=== PATIENT | male | born 1960 | race Caucasian/White ===

== ENCOUNTER 2020-05-26 07:38 | Day surgery (SDC) | payer MEDICAID ==
[~2020-05-26] VITALS: Ht 174 cm; Wt 90.4 kg
[2020-05-26] VITALS (11 sets, daily range): BP systolic 125–140; BP diastolic 87–119; PULSE 70–88; TEMP 98.7
[2020-05-26 08:40] LABS: HEMATOCRIT 44.8 % (42.0-52.0); HEMOGLOBIN 15.5 g/dl (13.5-18.0); MEAN CELL VOLUME 84 fl (80.0-100.0); MEAN CORPUSCULAR HEMOGLOBIN 29 pg (27.0-31.0); MEAN CORPUSCULAR HGB CONC 35 g/dl (33.0-37.0); MEAN PLATELET VOLUME 9.3 fl (7.4-10.4); PLATELET COUNT 247 K/mm3 (130-400); RED BLOOD COUNT 5.34 M/mm3 (4.20-5.60); REDCELL DISTRIBUTION WIDTH-CV 12.1 % (11.5-14.5)
[2020-05-26 08:41] LABS: CALCIUM 9.6 mg/dL (8.4-10.2); CREATININE, serum 1.1 (0.66-1.25); POTASSIUM 3.7 mmol/L (3.4-5.0); PROTHROMBIN TIME 10.9 SECONDS (9.7-12.8)
[2020-05-26 08:44] LABS: PARTIAL THROMBOPLASTIN TIME 31.3 SECONDS (26.0-37.0)
[2020-05-26] MEDS ORDERED: FEOSOL45 MG PO (08:46)
[2020-05-26] MEDS ORDERED: PHARMASSURE ZIN50 MG PO (08:47)
[2020-05-26] MEDS ORDERED: VITAMIN D31000 I1 PO (08:48)
[2020-05-26] MEDS ORDERED: REVATIO20 MG PO (08:49)
[2020-05-26] MEDS ORDERED: COLESTID 1GM1 G PO (08:50)
[2020-05-26] MEDS ORDERED: PROTONIX 40MG T40 MG PO (08:51)
[2020-05-26] MEDS ORDERED: ADVIL200 MG PO (08:54)
[2020-05-26] MEDS ORDERED: TYLENOL 325MG325 MG PO (08:55)
[2020-05-26] MEDS ORDERED: FLOMAX 0.40.4 MG/CAP PO (09:04)
[2020-05-26] MEDS ORDERED: FLEXERIL5 MG PO (09:05)
--- NOTE | 2020-05-26 14:58 | NUR ---
Discharge instructions given to pt.Pt verbalizes understanding.INT removed,catheter tip intact.Right radial observed clean,dry,intact,and soft.Right neck site observed clean,dry,intact.Pt escorted out via wheelchair by saurav watt.
== END 2020-05-26 16:37 | disposition home or self-care (01) ==
LOC: COL.CAR 07:38
PROVIDERS: Internal Medicine Cardiovascular Disease
DX: R06.00 Dyspnea, unspecified (principal); I10 Essential (primary) hypertension; K76.0 Fatty (change of) liver, not elsewhere classified; K58.9 Irritable bowel syndrome, unspecified; G62.9 Polyneuropathy, unspecified; K21.9 Gastro-esophageal reflux disease without esophagitis; M19.90 Unspecified osteoarthritis, unspecified site; M17.0 Bilateral primary osteoarthritis of knee; M19.012 Primary osteoarthritis, left shoulder; M19.011 Primary osteoarthritis, right shoulder; F41.9 Anxiety disorder, unspecified; Z79.899 Other long term (current) drug therapy; Z20.822 Contact with and (suspected) exposure to COVID-19; Z88.1 Allergy status to other antibiotic agents; Z87.891 Personal history of nicotine dependence
CPT/HCPCS: C1894; J1644; J2250; J3010; J7030; Q9967

== ENCOUNTER → 2021-04-16 | Outpatient (CLI) | payer MEDICAID ==
[~2021-04-16] MED LIST: ADVIL200 MG PO; COLESTID 1GM1 G PO; FEOSOL45 MG PO; FLEXERIL5 MG PO; FLOMAX 0.40.4 MG/CAP PO; PHARMASSURE ZIN50 MG PO; PROTONIX 40MG T40 MG PO; REVATIO20 MG PO; TYLENOL 325MG325 MG PO; VITAMIN D31000 I1 PO
== END ==
LOC: COL.PUL 10-19 13:00
DX: R06.02 Shortness of breath (principal)
CPT/HCPCS: J7674